=== PATIENT | male | born 1955 | race Hispanic/Latino ===

== ENCOUNTER 2023-07-04 09:30 | Emergency (ER) | payer BC ==
[2023-07-04] VITALS (12 sets, daily range): BP systolic 134–180; BP diastolic 81–103
[2023-07-04] MEDS ORDERED: IBUPROFEN600 MG PO (12:45)
[2023-07-04] MEDS ORDERED: FLEXERIL5 M1 PO (12:45)
== END 2023-07-04 12:58 | disposition home or self-care (01) | DRG 552 ==
LOC: ED 09:30
DX: S13.9XXA Sprain of joints and ligaments of unspecified parts of neck, initial encounter (principal); X58.XXXA Exposure to other specified factors, initial encounter